=== PATIENT | male | born 1960 | race Two or more races ===

== ENCOUNTER 2017-09-11 13:07 | Emergency (ER) | payer OTHER ==
[~2017-09-11] VITALS: Ht 188 cm; Wt 106.6 kg
[2017-09-11 13:16] VITALS: Ht 188 cm; Wt 106.6 kg
[2017-09-11 16:00] VITALS: BP 142/74
== END 2017-09-11 16:00 | disposition home or self-care (01) ==
LOC: ED 13:07
DX: S63.281A Dislocation of proximal interphalangeal joint of left index finger, initial encounter (principal); W18.39XA Other fall on same level, initial encounter; Y93.55 Activity, bike riding; Y92.89 Other specified places as the place of occurrence of the external cause; Y99.8 Other external cause status
CPT/HCPCS: 90715; A4570; J2001; J3490; Q0092